=== PATIENT | male | born 1970 | race Caucasian/White ===

== ENCOUNTER → 2016-11-04 | Outpatient (CLI) | payer BC ==
--- NOTE | 2016-11-04 16:00 | US ---
EXAMINATION TYPE: US thyroid st tissue head/neck DATE OF EXAM: 11/04/2016 COMPARISON: NONE CLINICAL HISTORY: 46-year-old male E04.1 Nodule. Difficulty swallowing, always feels like something i s in his throat for 3 months TECHNIQUE: Multiple sonographic images of the thyroid gland are obtained. FINDINGS: Right Lobe: 3.5 x 1.2 x 1.8 cm Overall Parenchyma: homogenous Left Lobe: 3.4 x 1.2 x 1.9 cm Overall Parenchyma: homogeneous Isthmus Thickness: 0.3 cm NODULES RIGHT: # of nodules measured on right: 0 LEFT: # of nodules measured on left: 0 ISTHMUS: # of nodules measured in the isthmus: 0 Bilateral neck scanned, no evidence of lymphadenopathy. IMPRESSION: NORMAL THYROID ULTRASOUND.
== END | disposition home or self-care (01) ==
LOC: RADUSWWP 15:17
PROVIDERS: ATTEND Family Medicine
DX: E04.1 Nontoxic single thyroid nodule (principal)
CPT/HCPCS: 76536

== ENCOUNTER → 2018-11-19 | Outpatient (CLI) | payer BC ==
--- NOTE | 2018-11-19 11:49 | ECHOS ---
STRESS ECHOCARDIOGRAM INDICATIONS: Shortness of breath MEDICATIONS: Losartan, atorvastatin, Paxil. BASELINE HEART RATE: 86 BASELINE BLOOD PRESSURE: 106/72 MAXIMUM HEART RATE: 151 MAXIMUM BLOOD PRESSURE: 167/86 85% MPHR: 145 100% MPHR: 171 METS: 10.3 MAXIMUM STAGE REACHED: 3 TOTAL EXERCISE TIME: 9:00 CLINICAL INFORMATION: Baseline EKG revealed normal sinus rhythm without significant ST changes. Patient walked for 9 minutes on a standard Valerio protocol. Achieved a maximal heart rate of 151 beats per minute which is more than 85% of predicted maximal. Developed fatigue and shortness of breath but did not have any angina or arrhythmia. EKG did not reveal any ST-segment changes to indicate ischemia. In the recovery period, one isolated PVC was noted. By EKG criteria, this is a negative stress test with fair exercise capacity. Baseline echo images revealed normal wall motion and wall thickening of all segments. At peak exercise, there was good augmentation of left and right wall motion and wall thickening of all segments suggesting that there is no evidence of stress-induced ischemia on this study. FINAL IMPRESSION: 1. Fair exercise capacity with a negative stress test by EKG criteria. 2. Normal stress echocardiogram. MMODL / IJN: [id number] /
== END | disposition home or self-care (01) ==
LOC: RADNMMAIN 10:03
PROVIDERS: ATTEND Family Medicine
DX: R06.02 Shortness of breath (principal)
CPT/HCPCS: 93351

== ENCOUNTER 2018-12-14 01:22 | Emergency (ER) | payer BC ==
--- NOTE | 2018-12-14 02:33 | ED ---
Extremity Problem HPI - General Chief complaint: Extremity Problem,Nontraumatic Stated complaint: Rt knee pain Time Seen by Provider: 12/14/18 01:52 Source: patient Mode of arrival: ambulatory Limitations: no limitations - History of Present Illness Initial comments: 48-year-old male patient presents to the emergency department today for evaluation of right knee pain and swelling. Patient states that he has been having pain in the knee for the last several days. Patient states tonight the pain increased and he noticed that there was significant swelling. Patient reports the pain is to the medial aspect of the knee. States it is a sharp stabbing pain. Patient denies any known injury. Denies any redness or warmth over the area. Denies fever or chills. Patient denies any recent rash, shortness breath, chest pain, abdominal pain, nausea, vomiting, diarrhea, constipation, back pain, numbness, tingling, dizziness, weakness, hematuria, dysuria, urinary urgency, urinary frequency, headache, visual changes, or any other complaints. - Related Data Home Medications Medication Instructions Recorded Confirmed Atorvastatin [Lipitor] 20 mg PO DAILY 04/19/17 04/19/17 Ibuprofen [Motrin] 600 mg PO Q8HR PRN 04/19/17 04/19/17 Losartan/Hydrochlorothiazide 1 tab PO DAILY 04/19/17 04/19/17 [Losartan-Hctz 100-12.5 mg Tab] PARoxetine HCL 30 mg PO DAILY 04/19/17 04/19/17 Previous Rx's Medication Instructions Recorded Naproxen [EC-Naprosyn] 500 mg PO BID PRN #30 tablet. 12/14/18 Allergies Allergy/AdvReac Type Severity Reaction Status Date / Time No Known Allergies Allergy Verified 04/19/17 16:52 Review of Systems ROS Statement: Those systems with pertinent positive or pertinent negative responses have been documented in the HPI. ROS Other: All systems not noted in ROS Statement are negative. Past Medical History Past Medical History: Hypertension Additional Past Medical History / Comment(s): migraines History of Any Multi-Drug Resistant Organisms: None Reported Past Surgical History: Orthopedic Surgery Additional Past Surgical History / Comment(s): carpal tunnel Past Psychological History: Depression Smoking Status: Never smoker Past Alcohol Use History: Occasional Past Drug Use History: None Reported General Exam Limitations: no limitations General appearance: alert, in no apparent distress, other (This is a well- developed, well-nourished adult male patient in no acute distress. Vital signs upon presentation are temperature 98.4F, pulse 98, respirations 18, blood pressure 143/87, pulse ox 95% on room air.) Respiratory exam: Present: normal lung sounds bilaterally. Absent: respiratory distress, wheezes, rales, rhonchi, stridor Cardiovascular Exam: Present: regular rate, normal rhythm, normal heart sounds. Absent: systolic murmur, diastolic murmur, rubs, gallop, clicks Extremities exam: Present: full ROM, normal capillary refill, joint swelling (Right knee), other (There is swelling over the right knee joint. No erythema or wounds. No calf tenderness. Skin is pink, warm, dry. Cap refills less than 3 seconds. Pedal and posttibial pulses 2+ and equal bilaterally.). Absent: normal inspection, tenderness, pedal edema, calf tenderness Neurological exam: Present: alert, oriented X3, CN II-XII intact Psychiatric exam: Present: normal affect, normal mood Skin exam: Present: warm, dry, intact, normal color. Absent: rash Course Vital Signs 12/14/18 12/14/18 01:55 03:38 Temperature 98.4 F 97.7 F Pulse Rate 98 89 Respiratory 18 20 Rate Blood Pressure 143/87 144/74 O2 Sat by Pulse 95 98 Oximetry Medical Decision Making - Medical Decision Making 48-year-old male patient presented to the emergency department today for evaluation of right knee pain and swelling. Patient denies injury. Physical examination did reveal soft tissue swelling over the right knee. No erythema or warmth. No calf swelling or tenderness. X-ray was obtained and showed no acute abnormalities. Patient be discharged home to follow-up with orthopedics for further evaluation. Be given Magdiel wrap for comfort and support. He is given anti-inflammatory pain medication. Return parameters were discussed in detail. He verbalizes understanding and agrees with this plan. - Radiology Data Radiology results: report reviewed, image reviewed 3 views of the right knee are obtained. Report reviewed in its entirety. Impression by Dr. Anglin shows no acute osseous trauma or injury or abnormal alignment of the right knee. Disposition Clinical Impression: Right knee pain, Swelling of right knee joint Disposition: HOME SELF-CARE Condition: Good Instructions (If sedation given, give patient instructions): Swollen Knee Joint (ED) Additional Instructions: Take medications as directed. Apply ice. Keep the elevated. Use Magdiel wrap for comfort and support. Follow-up with security specialist for further evaluation as soon as possible. Return to the emergency department immediately for any new, worsening, or concerning symptoms. Prescriptions: Naproxen [EC-Naprosyn] 500 mg PO BID PRN #30 tablet.dr PLASENCIA Reason: Pain Is patient prescribed a controlled substance at d/c from ED?: No Referrals: Sundar Pitts MD [Primary Care Provider] - 1-2 days Papa Mcclelland MD [STAFF PHYSICIAN] - 1-2 days Time of Disposition: 03:09
--- NOTE | 2018-12-14 02:54 | XR ---
EXAM: XR Right Knee, 3 views CLINICAL HISTORY: ITS.REASON XR Reason: Pain TECHNIQUE: Three views of the right knee. COMPARISON: No relevant prior studies available. FINDINGS: Bones/joints: Unremarkable. No acute fracture. No dislocation. No significant degenerative changes. Soft tissues: No significant soft tissue swelling suggested radiographically. No radiopaque foreign body. IMPRESSION: No acute osseous traumatic injury or abnormal alignment of the right knee.
[2018-12-14] MEDS ORDERED: NAPROXEN 250 MG TAB PO STA (03:16)
[2018-12-14 03:39] VITALS: BP 144/74; PULSE 89; RESP 20; TEMP 97.7
== END 2018-12-14 03:39 | disposition home or self-care (01) ==
LOC: EC 01:22
DX: M25.561 Pain in right knee (principal); M25.461 Effusion, right knee; I10 Essential (primary) hypertension; F32.9 Major depressive disorder, single episode, unspecified; Z79.899 Other long term (current) drug therapy
CPT/HCPCS: 99283

== ENCOUNTER → 2019-11-07 | Outpatient (CLI) | payer BC ==
--- NOTE | 2019-11-07 13:09 | ECHOS ---
STRESS ECHOCARDIOGRAM INDICATIONS: Palpitations MEDICATIONS: Atorvastatin, lisinopril. BASELINE HEART RATE: 86 BASELINE BLOOD PRESSURE: 117/88 MAXIMUM HEART RATE: 159 MAXIMUM BLOOD PRESSURE: 187/95 85% MPHR: 145 100% MPHR: 170 METS: 11.7 MAXIMUM STAGE REACHED: 4 TOTAL EXERCISE TIME: 10:10 CLINICAL INFORMATION: Baseline rhythm is sinus mechanism, rate of 86, normal axis and intervals. normal echocardiogram. Baseline blood pressure 117/88 mmHg. Patient exercised on Valerio protocol for 10 minute 10 seconds, reaching peak rate of 159 beats per minute which is equal to 94% maximum predicted heart rate. Peak blood pressure 187/95 mmHg. Test was terminated due to fatigue. There was no chest pain. Electrocardiograph monitoring revealed no evidence of diagnostic ischemic ST deviation, rare PVCs were noted. FINDINGS: Baseline echocardiogram revealed normal wall motion. At peak exercise, there was normal wall motion and augmentation with no hypokinesis or dyskinesis. CONCLUSION: 1. Good exercise tolerance with normal echocardiograph response to exercise with rare PVCs. 2. Normal stress echocardiogram with no evidence of stress-induced ischemia. MMODL / IJN: [id number] /
== END | disposition home or self-care (01) ==
LOC: RADNMMAIN 09:24
PROVIDERS: ATTEND Family Medicine
DX: I49.3 Ventricular premature depolarization (principal)
CPT/HCPCS: 93351

== ENCOUNTER 2019-12-09 09:41 | Day surgery (SDC) | payer BC ==
[2019-12-05 17:51] VITALS: BMI 41.9
[~2019-12-09 09:41] MED LIST: LACTATED RINGERS 1,000 ML IV SCH; LIDOCAINE 1% (10MG/ML) FOR IV START INTRADERMA PRN
[2019-12-09 09:57] VITALS: TEMP 96.3
[2019-12-09] MEDS ORDERED: MIDAZOLAM 2 MG/2 ML VIAL ONE (10:31)
[2019-12-09] MEDS ORDERED: PROPOFOL 10 MG/ML 20 ML VIAL IV ONE (10:31)
[2019-12-09] MEDS ORDERED: fentaNYL (PF) 50 MCG/ML 2 ML AMP ONE (10:31)
--- NOTE | 2019-12-09 11:11 | P.PCN ---
Date of Procedure: 12/09/19 Description of Procedure: BRIEF HISTORY: Patient is a 49-year-old male presenting for outpatient colonoscopy for screening for malignancy of the neoplasm. Denies any change in bowel habits, blood per rectum or abdominal pain. PROCEDURE PERFORMED: Colonoscopy with polypectomy. PREOPERATIVE DIAGNOSIS: Screening for malignant neoplasm colon, no prior colonoscopy. ESTIMATED BLOOD LOSS: Minimal. IV sedation per Anesthesia. PROCEDURE: After informed consent was obtained, the patient, was brought into the endoscopy unit. IV sedation was administered by Anesthesia under continuous monitoring. Digital rectal examination was normal. Initially the Olympus CF-190 flexible vid eo colonoscope was then inserted in the rectum, gradually advanced into the cecum without any difficulty. Careful examination was performed as the scope was gradually being withdrawn. Ileocecal valve and the appendiceal orifice were visualized and appeared normal. Prep was excellent. Mucosa of the cecum, ascending colon, transverse colon, descending colon, sigmoid colon, and rectum appeared normal. Diminutive polyps measuring 2-3 mm in size removed from the transverse colon, 2 from the sigmoid colon and 2 from the descending colon with cold forceps polypectomy. Retroflexion was performed in the rectum and no lesions were seen. The patient tolerated the procedure well. IMPRESSION: 5 diminutive polyps removed with cold forcep polypectomy from the transverse colon, 2 from the descending colon and 2 from the sigmoid colon with cold forceps. Otherwise normal-appearing colon from rectum to cecum. RECOMMENDATIONS: Findings of this examination were discussed with the patient. Okay to resume diet. Okay to resume medications. Await pathology from polypectomies. Would recommend repeat colonoscopy in 5 years pending pathology from polypectomy.
[2019-12-09] MEDS ORDERED: ACETAMINOPHEN TAB 500 MG TAB ONE (11:42)
[2019-12-09] MEDS ORDERED: ACETAMINOPHEN TAB 500 MG TAB PO ONE (11:45)
[2019-12-09 11:48] VITALS: BP 157/82; PULSE 82; RESP 18
== END 2019-12-09 12:02 | disposition home or self-care (01) ==
LOC: ORWHC2ENDO 09:41
PROVIDERS: ATTEND Internal Medicine
DX: Z12.11 Encounter for screening for malignant neoplasm of colon (principal); K63.5 Polyp of colon; I10 Essential (primary) hypertension; E78.5 Hyperlipidemia, unspecified; G47.33 Obstructive sleep apnea (adult) (pediatric); F32.9 Major depressive disorder, single episode, unspecified; G43.909 Migraine, unspecified, not intractable, without status migrainosus; Z79.899 Other long term (current) drug therapy; Z99.89 Dependence on other enabling machines and devices; Z98.890 Other specified postprocedural states
CPT/HCPCS: 88305; 45380; J2250; J3010; J2704

== ENCOUNTER 2022-04-04 15:49 | Emergency (ER) | payer BC, OTHER ==
[2022-04-04 16:12] VITALS: RESP 20
--- NOTE | 2022-04-04 16:27 | XR ---
EXAMINATION TYPE: XR chest 2V DATE OF EXAM: 04/04/2022 4:22 PM COMPARISON: Chest radiographs from 09/22/2012 TECHNIQUE: XR chest 2V Frontal and lateral views of the chest. CLINICAL INDICATION:Male, 52 years old with history of cough congestion; FINDINGS: Lungs/Pleura: There is no evidence of pleural effusion, focal consolidation, or pneumothorax. Pulmonary vascularity: Unremarkable. Heart/mediastinum: Cardiomediastinal silhouette is unremarkable. Musculoskeletal: No acute osseous pathology. IMPRESSION: No acute cardiopulmonary disease/process.
[2022-04-04] MEDS ORDERED: KETOROLAC 15 MG/ML 1 ML VIAL IVP STA (19:00)
[2022-04-04] MEDS ORDERED: SODIUM CHLORIDE 0.9% 1,000 ML IV STA (19:00)
[2022-04-04] MEDS ORDERED: ONDANSETRON 4 MG/2 ML VIAL IVP STA (19:11)
[2022-04-04] MEDS ORDERED: diphenhydrAMINE 50 MG/ML 1 ML VIAL IVP STA (19:11)
--- NOTE | 2022-04-04 19:14 | ED ---
General Adult HPI - General Chief complaint: Upper Respiratory Infection Stated complaint: Fever, Weakness, Dizzy Time Seen by Provider: 04/04/22 19:00 Source: patient Mode of arrival: ambulatory Limitations: no limitations - History of Present Illness Initial comments: Dictation was produced using [employer] dictation software. please excuse any gramm atical, word or spelling errors. Chief Complaint: 52-year-old male presents to the emergency department for fever, chills, body aches and headache History of Present Illness: Patient is a 52-year-old male he has past medical history of hypertension. States that for the last 48 hours he develop fever, chills, sore throat and bodyaches. He is also had a nonproductive cough. Patient denies any obvious sick exposure. Denies any chest pain. Does have some very mild vague diffuse abdominal pain. Denies any pain of the left lower quadrant and right lower quadrant. Does have a mild sore throat. The ROS documented in this emergency department record has been reviewed and confirmed by me. Those systems with pertinent positive or negative responses have been documented in the HPI. All other systems are other negative and/or noncontributory. PHYSICAL EXAM: General Impression: Alert and oriented x3, not in acute distress HEENT: Normocephalic atraumatic, extra-ocular movements intact, pupils equal and reactive to light bilaterally, mucous membranes moist, mild posterior pharyngeal erythema Cardiovascular: Heart regular rate and rhythm Chest: Able to complete full sentences, no retractions, no tachypnea Abdomen: abdomen soft, non-tender, non-distended, no organomegaly Musculoskeletal: Pulses present and equal in all extremities, no peripheral edema Motor: no focal deficits noted Neurological: CN II-XII grossly intact, no focal motor or sensory deficits noted Skin: Intact with no visualized rashes Psych: Normal affect and mood ED course: 52-year-old male presents emergency department for URI type symptoms for the last 48 hours. Vital signs upon arrival showed temperature of 101.9, heart rate of 118, rest of vital signs within acceptable limits. 4 panel viral PCR was ordered by triage. Negative for influenza, RSV and coronavirus. Chest x-ray also ordered by triage showing no acute cardiopulmonary processes. Nursing notes and chart review was performed Patient given IV fluids and headache cocktail. He is observed in the emergency department for 4 hours and 30 minutes. Reevaluated at bedside at 8:30 PM found to be in improved condition. Patient reports improvement. Labs are unremarkable. Patient discharged. Advised follow-up with primary care doctor. Critical Care: no Critical Care time: n/a - Related Data Home Medications Medication Instructions Recorded Confirmed Atorvastatin [Lipitor] 20 mg PO 1500 04/19/17 12/09/19 PARoxetine HCL 20 mg PO 1500 04/19/17 12/09/19 hydroCHLOROthiazide [Hydrodiuril] 25 mg PO 1500 12/05/19 12/09/19 lisinopriL [Zestril] 20 mg PO 1500 12/05/19 12/09/19 Allergies Allergy/AdvReac Type Severity Reaction Status Date / Time No Known Allergies Allergy Verified 12/09/19 09:55 Review of Systems ROS Statement: Those systems with pertinent positive or pertinent negative responses have been documented in the HPI. ROS Other: All systems not noted in ROS Statement are negative. Past Medical History Past Medical History: Hyperlipidemia, Hypertension, Sleep Apnea/CPAP/BIPAP Additional Past Medical History / Comment(s): migraines, intermittent dizziness- to see dermatology physician assistant soon, doesn't use anything for sleep apnea History of Any Multi-Drug Resistant Organisms: None Reported Past Surgical History: Orthopedic Surgery Additional Past Surgical History / Comment(s): ganglion cyst removed Past Anesthesia/Blood Transfusion Reactions: No Reported Reaction Past Psychological History: Depression Smoking Status: Never smoker General Exam Limitations: no limitations Course Vital Signs 04/04/22 04/04/22 04/04/22 16:08 18:52 20:22 Temperature 101.9 F H 99.9 F H Pulse Rate 118 H Pulse Rate [ 120 H Lighting Specialist ] Respiratory 20 Rate Blood Pressure 166/93 O2 Sat by Pulse 96 Oximetry 04/04/22 20:23 Temperature Pulse Rate 111 H Pulse Rate [ Lighting Specialist ] Respiratory Rate Blood Pressure 141/90 O2 Sat by Pulse 91 L Oximetry Medical Decision Making - Lab Data Result diagrams: 04/04/22 19:18 04/04/22 19:18 Lab Results 04/04/22 04/04/22 04/04/22 Range/Units 16:12 19:18 19:18 WBC 10.5 (3.8-10.6) k/uL RBC 5.50 (4.30-5.90) m/uL Hgb 16.9 (13.0-17.5) gm/dL Hct 48.8 (39.0-53.0) % MCV 88.7 (80.0-100.0) fL MCH 30.8 (25.0-35.0) pg MCHC 34.7 (31.0-37.0) g/dL RDW 13.8 (11.5-15.5) % Plt Count 148 L (150-450) k/uL MPV 9.4 Neutrophils % 86 % Lymphocytes % 4 % Monocytes % 7 % Eosinophils % 1 % Basophils % 1 % Neutrophils # 9.0 H (1.3-7.7) k/uL Lymphocytes # 0.4 L (1.0-4.8) k/uL Monocytes # 0.7 (0-1.0) k/uL Eosinophils # 0.1 (0-0.7) k/uL Basophils # 0.1 (0-0.2) k/uL Sodium 134 L (137-145) mmol/L Potassium 4.1 (3.5-5.1) mmol/L Chloride 102 (98-107) mmol/L Carbon Dioxide 23 (22-30) mmol/L Anion Gap 9 mmol/L BUN 15 (9-20) mg/dL Creatinine 1.12 (0.66-1.25) mg/dL Est GFR (CKD-EPI)AfAm 87 (>60 ml/min/1.73 sqM) Est GFR (CKD-EPI)NonAf 75 (>60 ml/min/1.73 sqM) Glucose 127 H (74-99) mg/dL Calcium 8.7 (8.4-10.2) mg/dL Total Bilirubin 0.8 (0.2-1.3) mg/dL AST 33 (17-59) U/L ALT 39 (4-49) U/L Alkaline Phosphatase 70 (38-126) U/L Total Protein 7.2 (6.3-8.2) g/dL Albumin 4.3 (3.5-5.0) g/dL Influenza Type A (PCR) Not Detected (Not Detectd) Influenza Type B (PCR) Not Detected (Not Detectd) RSV (PCR) Not Detected (Not Detectd) SARS-CoV-2 (PCR) Not Detected (Not Detectd) Disposition Clinical Impression: URI (upper respiratory infection) Disposition: HOME SELF-CARE Condition: Fair Instructions (If sedation given, give patient instructions): Upper Respiratory Infection (ED) Is patient prescribed a controlled substance at d/c from ED?: No Referrals: Nonstaff,Physician [Primary Care Provider] - 1-2 days Time of Disposition: 20:27
[2022-04-04 19:40] LABS: Basophils # (A) 0.1 k/uL (0-0.2); Basophils % (A) 1 %; Eosinophils # (A) 0.1 k/uL (0-0.7); Eosinophils % (A) 1 %; HCT 48.8 % (39.0-53.0); HGB 16.9 gm/dL (13.0-17.5); Lymphocytes # (A) 0.4 k/uL (1.0-4.8); Lymphocytes % (A) 4 %; MCH 30.8 pg (25.0-35.0); MCHC 34.7 g/dL (31.0-37.0); MCV 88.7 fL (80.0-100.0); Mean Platelet Volume 9.4; Monocytes # (A) 0.7 k/uL (0-1.0); Monocytes % (A) 7 %; Neutrophils % (A) 86 %; Platelet Count 148 k/uL (150-450); RDW 13.8 % (11.5-15.5); WBC 10.5 k/uL (3.8-10.6)
[2022-04-04 20:09] LABS: Albumin 4.3 g/dL (3.5-5.0); Calcium 8.7 mg/dL (8.4-10.2); Potassium 4.1 mmol/L (3.5-5.1); Total Bilirubin 0.8 mg/dL (0.2-1.3); Total Protein 7.2 g/dL (6.3-8.2)
[2022-04-04 20:23] VITALS: TEMP 99.9
[2022-04-04 20:24] VITALS: BP 141/90; PULSE 111
[2022-04-04] MEDS ORDERED: ONDANSETRON 4 MG ODT STARTER PACK 2 TAB BTL PO STA (20:27)
[2022-04-04] MEDS ORDERED: IBUPROFEN 600 MG STARTER PACK 4 TAB BTL PO STA (20:27)
== END 2022-04-04 21:00 | disposition home or self-care (01) ==
LOC: EC 15:49
DX: J06.9 Acute upper respiratory infection, unspecified (principal); I10 Essential (primary) hypertension; E78.5 Hyperlipidemia, unspecified; F32.A Depression, unspecified; G47.30 Sleep apnea, unspecified; Z20.822 Contact with and (suspected) exposure to COVID-19; Z79.899 Other long term (current) drug therapy
CPT/HCPCS: 36415; 80053; 85025; 87636; 71046; 99284; 96374; 96375 ×2; 96361 ×5; J1200; J2405; J1885; S0119; 93005; 99285